=== PATIENT | female | born 1975 | race African-American/Black ===

== ENCOUNTER 2019-09-25 12:40 | Outpatient (CLI) | payer BC, SELFPAY ==
--- NOTE | ~2019-09-25 | MM_ITS ---
EXAMINATION: MM screening carrie BI w yesi HISTORY: Baseline screening mammogram TECHNIQUE: Craniocaudal and mediolateral oblique 3-D tomosynthesis images were obtained and synthetic 2-D images were generated. CAD analysis was submitted and interpreted. COMPARISON: None, baseline BREAST PARENCHYMAL COMPOSITION: The breasts are heterogeneously dense, which may obscure small masses . FINDINGS: RIGHT BREAST: Focal asymmetry is present in the posterior third of the upper breast at the 12:00 loca tion 8 cm from the nipple. LEFT BREAST: There is an asymmetry in the middle/posterior third of the outer breast 8.8 cm from the nipple on the craniocaudal view. IMPRESSION: 1. Bilateral breast findings as described above. 2. Additional mammographic views and possible breast ultrasound are recommended to evaluate for malig kedar and establish a baseline given that this is the first mammographic examination. BI-RADS Category 0: Incomplete: Needs additional imaging evaluation. Reviewed, dictated and finalized at location A. IMPRESSION: 1. Bilateral breast findings as described above. 2. Additional mammographic views and possible breast ultrasound are recommended to evaluate for malignancy and establish a baseline given that this is the fir st mammographic examination. BI-RADS Category 0: Incomplete: Needs additional imaging evaluation.
--- NOTE | ~2019-09-25 | US_ITS ---
EXAMINATION: US thyroid DATE: 09/25/2019 13:41 INDICATION: Abnormal results of thyroid function studies. Enlarged thyroid. TECHNIQUE: Multiple ultrasound images of the thyroid were obtained. COMPARISON: None. FINDINGS: The right thyroid lobe measures 6.1 x 1.7 x 1.7 cm. The left thyroid lobe measures 4.3 x 1.8 x 1.7 c m. In the right thyroid lobe, there is a 5 mm solid, hypoechoic, [id number]-[id number] nodule with ill-def ined margin without echogenic foci (TI-RADS TR4). In the right thyroid lobe, there is a 7 mm cystic n odule (TR1). IMPRESSION: 1. Small thyroid nodules, likely not clinically significant. No follow-up is needed. Reviewed, dictated and finalized at location A. IMPRESSION: 1. Small thyroid nodules, likely not clinically significant. No follow-up is ne eded.
--- NOTE | ~2019-09-25 | US_ITS ---
EXAMINATION: US pelvic complete w TV DATE: 09/25/2019 13:41 INDICATION: Right adnexal pain and fullness TECHNIQUE: Multiple transabdominal and endovaginal sonographic images of the pelvis were obtained. COMPARISON: 02/20/2014 FINDINGS: The uterus measures 11.4 x 6.1 x 4.9 cm. The endometrial complex measures 7 mm. The right o vary measures 4.3 x 2.3 x 2.1 cm. The left ovary measures 3.4 x 2.3 x 2.1 cm. There is normal vascula r flow in the ovaries. There is trace free fluid in the pelvis. IMPRESSION: 1. No sonographic correlate for the patient's symptoms. Reviewed, dictated and finalized at location A.
[2019-09-25 17:27] LABS: Hepatitis B Surface Antigen Negative (Negative)
[2019-09-25 17:42] LABS: HIV 1/2 Ab P24 Ag Result Negative (Negative); Hepatitis C Virus Antibody Negative (Negative)
[2019-09-26 08:49] LABS: Rapid Plasma Reagin Non-Reactive (NonReactive)
[2019-09-29 14:56] LABS: HSV 1 IgM Screen Negative (Negative); HSV 2 IgM Screen Negative (Negative)
== END 2019-09-25 12:41 | disposition home or self-care (01) ==
PROVIDERS: PCP Family Medicine; Visit Provider Obstetrics & Gynecology
DX: Z12.31 Encounter for screening mammogram for malignant neoplasm of breast (principal); R10.2 Pelvic and perineal pain; E04.1 Nontoxic single thyroid nodule
CPT/HCPCS: 36415; 76536; 76830; 76856; 77063; 77067; 86592; 86695; 86696; 86703; 86803; 87340; G0432

== ENCOUNTER 2019-10-19 12:55 | Outpatient (CLI) | payer BC, SELFPAY ==
--- NOTE | ~2019-10-19 | MMUS_ITS ---
EXAMINATION: MM diagnostic mammo BI, US breast RT limited HISTORY: Left breast asymmetry and focal asymmetry of the right breast on baseline screening mammogra m TECHNIQUE: Additional 3-D tomosynthesis images of the breasts were performed and synthetic 2-D images were generated. CAD analysis was submitted and interpreted. High resolution limited right breast ult rasound was performed. COMPARISON: 09/25/2019 FINDINGS: MAMMOGRAPHIC FINDINGS: Left breast: The left breast asymmetry described on the craniocaudal view does not persist with spot compression. Right breast: There is persistent focal asymmetry in the posterior third of the upper breast at the 1 2:00 location 8 cm from the nipple. ULTRASOUND: There is a 1.3 x 0.5 cm cyst at the 10:00 location 7 cm from the nipple. Incidental note is made of a 5 mm lymph node the 9:00 location 4 cm from the nipple. IMPRESSION: 1. No mammographic or sonographic evidence of malignancy. 2. Recommend routine screening mammography in one year. BI-RADS Category 2: Benign finding(s). Reviewed, dictated and finalized at location A. IMPRESSION: 1. No mammographic or sonographic evidence of malignancy. 2. Recommend routine screening mammography in one year. BI-RADS Category 2: Benign finding(s).
== END 2019-10-19 12:56 | disposition home or self-care (01) ==
LOC: ANHIMG 12:56
PROVIDERS: PCP Family Medicine; Visit Provider Obstetrics & Gynecology
DX: R92.8 Other abnormal and inconclusive findings on diagnostic imaging of breast (principal)
CPT/HCPCS: 76642; 77066

== ENCOUNTER 2020-01-05 23:02 | Emergency (ER) | payer BC, SELFPAY ==
[2020-01-05 23:06] VITALS: BP 160/95; PULSE 83; RESP 18; TEMP 37.1; O2SAT 98
[2020-01-05 23:47] LABS: Add Urine Microscopic? NO; Appearance Urine Clear (Clear); Bilirubin Urine Negative (Negative); Blood Urine Negative (Negative); Color Urine Colorless (Yellow); Glucose Urine UA Negative (Negative); Ketones Urine Negative (Negative); Leukocyte Esterase Ur Negative LEU/UL (Negative); Nitrate Urine Negative (Negative); Protein Urine Negative (Negative); Urobilinogen Urine Negative mg/dL (<2.0)
[2020-01-06 00:04] LABS: Specific Grav Ur 1.004 (1.001-1.035)
--- NOTE | 2020-01-06 00:13 | ED.GENADULT ---
HPI - General Adult General Chief complaint: Skin/Abscess/Foreign Body Stated complaint: bug bite Time Seen by Provider: 01/05/20 23:20 Source: RN notes reviewed History of Present Illness HPI narrative: Patient presents emergency department from home for insect bite. Patient states she was bit on the right inner upper arm yesterday. States she is unsure what bit or stung her but notes she has had increasing pain and swelling and redness to the region. Denies any other injuries. She denies any fevers or chills numbness or tingling in the extremity or any other symptoms states she is taken no previous medication for the symptoms. Patient states she also has some concern about a possible UTI. She notes some mild frequent urination. She denies any pain with urination abdominal pain or flank pain Related Data Allergies Allergy/AdvReac Type Severity Reaction Status Date / Time No Known Allergies Allergy Verified 01/05/20 23:09 Review of Systems Review of Systems: Narrative: Gen.: Denies fevers or chills ENT: Denies congestion Respiratory: Denies shortness of breath or cough CV: Denies chest pain GI: Denies abdominal pain nausea, emesis denies burning, urgency, or hematuria, reports frequency Musculoskeletal: Denies back pain or muscle pain Neuro: Denies numbness, tingling, weakness or focal weakness Skin: See HPI Except as documented, all other systems reviewed and negative PMFSH Past Medical History Medical History Enlarged thyroid Essential hypertension JENY (generalized anxiety disorder) High risk sexual behavior Suicidal ideation Vaginal delivery x 2 Social History Social History Smoking status: Never smoker Second hand tobacco smoke exposure: No Alcohol intake: never Substance use: never Substance use type: does not use Gender identity (if verbalized by the patient): Female Sexual Orientation (if Verbalized by the Patient): Straight or Heterosexual Exam Narrative: Exam Narrative: APPEARANCE: No acute distress, nontoxic, resting in bed EYES: EOMI HEENT: Normocephalic, atraumatic, OMM RESPIRATORY: No respiratory distress Clear to auscultation bilaterally with no rhonchi wheezing or rales. CARDIOVASCULAR: Regular rate and rhythm without murmurs rubs or gallops. ABDOMINAL: Soft, nontender, nondistended, no rebound or guarding MUSCULOSKELETAl: Moves all extremities. No clubbing, cyanosis or edema. No tenderness of the right shoulder elbow or wrist with full range of motion both, radial pulse 2+, the right inner upper arm has a raised area consistent with a insect bite or sting with surrounding erythema mild tenderness NEURO: Awake and alert. Following commands, speech normal, no focal deficits SKIN:: Warm, dry. See extremity PSYCHIATRIC: Normal affect/mood, Course Course Emergency Course: Discussed with patient results of workup and diagnosis. Discussed need for follow-up with primary care, proper use of medication, and reasons to return to the emergency department. Patient understands and agrees to current treatment plan Vital Signs Vital signs: Vital Signs Temperature 98.8 F 01/05/20 23:06 Pulse Rate 83 01/05/20 23:06 Respiratory Rate 18 01/05/20 23:06 Blood Pressure 160/95 H 01/05/20 23:06 Pulse Oximetry 98 01/05/20 23:06 Temperature 98.8 F 01/05/20 23:06 Pulse Rate 83 01/05/20 23:06 Respiratory Rate 18 01/05/20 23:06 Blood Pressure 160/95 H 01/05/20 23:06 Pulse Oximetry 98 01/05/20 23:06 Medical Decision Making Vital Signs Vital Signs: Vital Signs Temperature 98.8 F 01/05/20 23:06 Pulse Rate 83 01/05/20 23:06 Respiratory Rate 18 01/05/20 23:06 Blood Pressure 160/95 H 01/05/20 23:06 Pulse Oximetry 98 01/05/20 23:06 Temperature 98.8 F 01/05/20 23:06 Pulse Rate 83 01/05/20 23:06 Respiratory Rate 18 01/05/20
[2020-01-06] MEDS: CEPHALEXIN 500 MG CAPSULE PO (00:24)
[2020-01-06] MEDS: predniSONE 20 MG TABLET 60 MG PO (00:24)
[2020-01-06] MEDS: LORATADINE 10 MG TABLET PO (00:24)
[2020-01-06 00:29] VITALS: BP 135/90; PULSE 75; RESP 17; O2SAT 100
== END 2020-01-06 00:30 | disposition home or self-care (01) ==
PROVIDERS: Emergency Provider Emergency Medicine; PCP Family Medicine
DX: S40.861A Insect bite (nonvenomous) of right upper arm, initial encounter (principal); I10 Essential (primary) hypertension; E04.9 Nontoxic goiter, unspecified; W57.XXXA Bitten or stung by nonvenomous insect and other nonvenomous arthropods, initial encounter
CPT/HCPCS: 81003; 81025; 99283; A9270; J7512

== ENCOUNTER 2020-01-10 16:41 | Outpatient (CLI) | payer BC, SELFPAY ==
[2020-01-15 05:48] LABS: FSH 3.7 mIU/mL (***); LH 2.4 mIU/mL (***); Progesterone 13.5 ng/mL (***)
[2020-01-17 19:43] LABS: Estradiol, Ultrasensitive 92 pg/mL
== END 2020-01-10 16:42 | disposition home or self-care (01) ==
LOC: ANHLAB 16:43
PROVIDERS: PCP Family Medicine; Visit Provider Obstetrics & Gynecology
DX: R10.2 Pelvic and perineal pain (principal)
CPT/HCPCS: 36415; 82670; 83001; 83002; 84144; 84439; 84443

== ENCOUNTER 2020-09-11 10:39 | Outpatient (CLI) | payer BC, SELFPAY ==
[2020-09-11 11:03] LABS: Hematocrit 36.8 % (37.0-47.0); Hemoglobin 12.2 g/dL (12.0-15.0); Mean Corpuscular HGB Conc 33.2 g/dl (32-36); Mean Corpuscular Hemoglobin 29.8 pg (26-34); Mean Platelet Volume 10.2 fl (7.4-10.4); Platelet Count Result 359 k/mm3 (150-375); Red Blood Count 4.09 M/mm3 (4.2-5.4); Red Cell Distribution Width 13.8 % (11.5-14.5); White Blood Count 5.3 K/mm3 (4.5-10.0)
[2020-09-11 11:13] LABS: Alanine Aminotransferase 20 U/L (4-35); Alkaline Phosphatase 63 U/L (38-126); Anion Gap 8 mmol/L (8-16); Aspartate Amino Transferase 28 U/L (14-36); Bilirubin,Total 0.3 mg/dL (0.2-1.3); Blood Urea Nitrogen 8 mg/dL (7-17); Calcium 9.5 mg/dL (8.4-10.2); Carbon Dioxide 26 mmol/L (22-30); Chloride 105 mmol/L (98-107); Cholesterol 198 mg/dL (0-200); Estimated Glomerular Filt Rate > 60; Glucose 106 mg/dL (65-105); HDL Direct 45 mg/dL; Potassium 4.4 mmol/L (3.4-5.0); Sodium 139 mmol/L (137-145); Triglycerides 124 mg/dL (<150)
[2020-09-11 11:24] LABS: LDL Cholesterol Direct 103 mg/dL
[2020-09-11 11:39] LABS: Add Urine Microscopic? YES; Appearance Urine Clear (Clear); Bilirubin Urine Negative (Negative); Blood Urine 3+ (Negative); Color Urine Colorless (Yellow); Glucose Urine UA Negative (Negative); Ketones Urine Negative (Negative); Leukocyte Esterase Ur Negative LEU/UL (NEGATIVE); Nitrate Urine Negative (Negative); Protein Urine Negative (Negative); Specific Grav Ur 1.005 (1.001-1.035); Urobilinogen Urine Negative mg/dL (<2.0)
[2020-09-11 11:52] LABS: RBC Urine 0-2 /hpf (0-2)
[2020-09-11 11:53] LABS: Squamous Epithelial Cell Urine Occasional /hpf (Few)
== END 2020-09-11 10:40 | disposition home or self-care (01) ==
LOC: ANHLAB 10:41
PROVIDERS: PCP Family Medicine; Visit Provider Family Medicine
DX: I10 Essential (primary) hypertension (principal); Z00.00 Encounter for general adult medical examination without abnormal findings
CPT/HCPCS: 36415; 80053; 80061; 81001; 84443; 85027

== ENCOUNTER 2021-04-16 17:55 | Outpatient (CLI) | payer BC, SELFPAY ==
--- NOTE | ~2021-04-16 | MM_ITS ---
EXAMINATION: MM screening carrie BI w yesi HISTORY: Screening mammogram TECHNIQUE: Craniocaudal and mediolateral oblique 3-D tomosynthesis images were obtained and synthetic 2-D images were generated. CAD analysis was submitted and interpreted. COMPARISON: 10/19/2019, 09/25/2019 BREAST PARENCHYMAL COMPOSITION: The breasts are heterogeneously dense, which may obscure small masses . FINDINGS: RIGHT BREAST: There is no evidence of suspicious mass, calcification, or architectural distortion to suggest malignancy. There has been no significant interval change. LEFT BREAST: There is a mass in the posterior third of the lower-outer breast 7 cm from the nipple. IMPRESSION: 1. Left breast mass. 2. Additional mammographic views and possible breast ultrasound are recommended. BI-RADS Category 0: Incomplete: Needs additional imaging evaluation. Reviewed, dictated and finalized at location A. RNAL SPECIALIST IMPRESSION: 1. Left breast mass. 2. Additional mammographic views and possible breast ultrasound are recommended . BI-RADS Category 0: Incomplete: Needs additional imaging evaluation.
== END 2021-04-16 17:56 | disposition home or self-care (01) ==
LOC: ANHIMG 17:57
PROVIDERS: PCP Family Medicine; Visit Provider Obstetrics & Gynecology
DX: Z12.31 Encounter for screening mammogram for malignant neoplasm of breast (principal); R92.8 Other abnormal and inconclusive findings on diagnostic imaging of breast
CPT/HCPCS: 77063; 77067

== ENCOUNTER 2021-04-21 13:24 | Outpatient (CLI) | payer BC, SELFPAY ==
--- NOTE | ~2021-04-21 | MMUS_ITS ---
EXAMINATION: MM diagnostic carrie LT w yesi, US breast LT limited HISTORY: Follow-up left breast mass TECHNIQUE: Additional 3-D tomosynthesis images of the left breast were performed and synthetic 2-D im ages were generated. CAD analysis was submitted and interpreted. High resolution Limited left breast ultrasound was performed. COMPARISON: 04/16/2021 BREAST PARENCHYMAL COMPOSITION: Breast composed of scattered areas of fibroglandular density. FINDINGS: MAMMOGRAPHIC FINDINGS: There is a mass in the lower outer quadrant of the left breast, middle third. There are no suspicious calcifications or architectural distortion. ULTRASOUND: Limited left breast ultrasound: At 4:00, 4 cm from the nipple there is a cyst measuring 1.5 x 1.2 x 0 .7 cm corresponding to the mass seen on mammography. No suspicious masses to suggest malignancy. IMPRESSION: 1. No evidence for malignancy in the left breast. 2. Routine yearly screening mammogram and regular clinical breast examination are recommended. BI-RADS Category 2: Benign finding(s). Reviewed, dictated and finalized at location A. NESS BANKING REPRESENTATIVE IMPRESSION: 1. No evidence for malignancy in the left breast. 2. Routine yearly screening mammogram and regular clinical breast examination a re recommended. BI-RADS Category 2: Benign finding(s).
== END 2021-04-21 13:25 | disposition home or self-care (01) ==
LOC: ANHIMG 13:25
PROVIDERS: PCP Family Medicine; Visit Provider Obstetrics & Gynecology
DX: N60.02 Solitary cyst of left breast (principal)
CPT/HCPCS: 76642; 77061; 77065; G0279

== ENCOUNTER 2021-06-14 20:40 | Emergency (ER) | payer BC, SELFPAY ==
[2021-06-14] VITALS (11 sets, daily range): BP systolic 104–145; BP diastolic 60–111; PULSE 70–104; RESP 12–18; TEMP 36.3; O2SAT 98–100
--- NOTE | 2021-06-14 20:39 | ECG_ITS ---
Measurements Intervals [place] Rate: 100 P: 59 [place]: 185 QRS: 42 QRSD: 83 T: 262 QT: 338 QTc: 436 Interpretive Statements SINUS TACHYCARDIA POSSIBLE LEFT ATRIAL ENLARGEMENT [-0.1mV P WAVE IN V1/V2] LEFT VENTRICULAR HYPERTROPHY AND ST-T CHANGE [VOLTAGE CRITERIA PLUS ST/T ABNORMALITY] ABNORMAL ECG NO PREVIOUS ECG AVAILABLE FOR COMPARISON Electronically Signed On 06-15-2021 14:00:01 PALLIATIVE SENIOR NP by Stevenson Fontaine M.D.
--- NOTE | 2021-06-14 20:46 | ED.GENADULT ---
HPI - General Adult General Chief complaint: Overdose Stated complaint: marijuana overdose Time Seen by Provider: 06/14/21 20:46 Source: patient Mode of arrival: EMS Limitations: no limitations History of Present Illness HPI narrative: Patient is a 46-year-old female, with PMHx of anxiety, depression, and HTN, who presents to the ED via EMS with complaints of marijuana intoxication. Patient reports she was making cannabis butter tonight for the first time. She then ate a cookie that she dipped into the residual oil of the butter. Patient then began to feel panicked and noticed her heart start racing around 1 hour later. She states she felt like she was 'going to ', at which point EMS was called. Currently in the ED, patient states her anxiety comes and goes in waves. She does report feeling her heart racing. She denies any chest pain, headache, weakness, vision changes, nausea, vomiting, shortness of breath. She denies taking any other drugs or alcohol use tonight. She was not trying to harm herself in any way. Related Data Home Medications Medication Instructions Recorded Confirmed amlodipine 06/14/21 Allergies Allergy/AdvReac Type Severity Reaction Status Date / Time No Known Allergies Allergy Verified 06/14/21 20:46 Review of Systems Review of Systems: CONSTITUTIONAL: Denies fever, chills, or sweats. EYES: Denies visual changes. CARDIOVASCULAR: Reports racing heart palpitations. Denies chest pain or edema. RESPIRATORY: Denies cough or dyspnea. GASTROINTESTINAL: Denies abdominal pain, nausea, vomiting, or diarrhea. MUSCULOSKELETAL: Denies back pain, joint pain, or myalgia. NEUROLOGIC: Denies headache, numbness, or weakness. PSYCHIATRIC: Reports anxiety. Denies depression, SI. All systems reviewed & are unremarkable except as noted in HPI and below PMFSH Past Medical History Medical History Anxiety Depression Hypertension Surgical History Surgical History No pertinent past surgical history Social History Social History Smoking status: Never smoker Substance use type: marijuana Exam Narrative: GENERAL: Anxious appearing, well-nourished, non-toxic, in no acute distress. HEAD: Normocephalic, atraumatic. EYES: PERRL/EOMI, conjunctivae erythematous bilaterally. No nystagmus. NOSE: Normal, no drainage THROAT: Pharynx clear, no exudate. MMs dry. NECK: Supple. No adenopathy, no masses. RESPIRATORY: Airway patent, respirations nonlabored. Clear to auscultation bilaterally, no rales, rhonchi, wheezing. CARDIOVASCULAR: Tachycardia, regular rhythm without murmurs, rubs, or gallops. Peripheral pulses 2+ and equal bilaterally. ABDOMINAL: Soft, nontender, nondistended, no hepatosplenomegaly. Normoactive BS. MUSCULOSKELETAL: Moves all extremities. Strength/ROM intact without gross deformities or TTP. No edema. No calf tenderness. SKIN: Warm, dry, normal color. No rashes. NEURO: A&O X3. Speech clear. Able to follow commands. Cranial nerves II-XII intact. Steady gait. No ataxic movements. PSYCHIATRIC: Anxious. Normal interaction. Course Reevaluation(s) Reevaluation #1: Patient feeling calmer and resting comfortably in ED bed. VS improved. Date: 06/14/21 Time: 22:42 Vital Signs Vital signs: Vital Signs Temperature 97.4 F L 06/14/21 20:36 Pulse Rate 104 H 06/14/21 20:36 Respiratory Rate 17 06/14/21 20:36 Blood Pressure 145/111 H 06/14/21 20:36 Pulse Oximetry 98 06/14/21 20:36 Temperature 97.4 F L 06/14/21 20:36 Pulse Rate 88 06/14/21 23:46 Respiratory Rate 14 06/14/21 23:46 Blood Pressure 104/63 06/14/21 23:46 Pulse Oximetry 99 06/14/21 23:46 Medical Decision Making MDM Narrative Medical decision making narrative: Patient presented to the ED via EMS after ingesting concentrated marijuana oil while making e
[2021-06-14] MEDS: SODIUM CHLORIDE 0.9% IV 1,000 ML 999 ML IV CONT (20:53)
[2021-06-14 23:06] LABS: Basophils Percent Auto 0.4 % (0.2-1.2); Eosinophils Percent Auto 0.1 % (0-4.4); Hematocrit 34.5 % (37.0-47.0); Hemoglobin 11.3 g/dL (12.0-15.0); Immature Granulocyte Absolute 0.02 K/mm3 (0.00-0.031); Immature Granulocyte Percent A 0.2 % (0-0.5); Lymphocytes Absolute Auto 1.03 K/mm3 (0.9-3.2); Lymphocytes Percent Auto 10.1 % (18.3-44.2); Mean Corpuscular HGB Conc 32.8 g/dl (32-36); Mean Corpuscular Hemoglobin 30.7 pg (26-34); Mean Corpuscular Volume 93.8 fl (80-100); Mean Platelet Volume 10.1 fl (7.4-10.4); Monocytes Absolute Auto 0.6 K/mm3 (0.1-0.6); Monocytes Percent Auto 6.3 % (2.6-8.5); Neutrophils Absolute Auto 8.4 K/mm3 (1.3-6.7); Neutrophils Percent Auto 82.9 % (45.5-73.1); Platelet Count Result 300 k/mm3 (150-375); Red Blood Count 3.68 M/mm3 (4.2-5.4); Red Cell Distribution Width 13.2 % (11.5-14.5); White Blood Count 10.2 K/mm3 (4.5-10.0)
[2021-06-14 23:16] LABS: Anion Gap 4 mmol/L (8-16); Blood Urea Nitrogen 12 mg/dL (7-17); Calcium 8.5 mg/dL (8.4-10.2); Carbon Dioxide 27 mmol/L (22-30); Chloride 105 mmol/L (98-107); Estimated CRCL calculation 83 ml/min; Estimated Glomerular Filt Rate > 60; Glucose 121 mg/dL (65-110); Magnesium 1.9 mg/dL (1.6-2.3); Potassium 4.6 mmol/L (3.4-5.0); Sodium 136 mmol/L (137-145)
== END 2021-06-14 23:40 | disposition home or self-care (01) ==
PROVIDERS: Physician Assistant; Emergency Provider Emergency Medicine
DX: T40.711A Poisoning by cannabis, accidental (unintentional), initial encounter (principal); F41.9 Anxiety disorder, unspecified; F32.A Depression, unspecified; I10 Essential (primary) hypertension; R00.0 Tachycardia, unspecified; R94.31 Abnormal electrocardiogram [ECG] [EKG]; I51.7 Cardiomegaly
CPT/HCPCS: 36415; 80048; 83735; 85025; 93005; 96360; 99283; J7030

== ENCOUNTER 2021-09-06 14:53 | Emergency (ER) | payer BC, SELFPAY ==
--- NOTE | ~2021-09-06 | CT_ITS ---
EXAMINATION: CT abdomen pelvis wo con DATE: 09/06/2021 16:41 INDICATION: Constipation and diarrhea. Abdominal cramping. TECHNIQUE: Computed tomography (CT) of the abdomen and pelvis was performed without intravenous contr ast. The dose-length product was 363.53 mGy-cm. Automated exposure control and iterative reconstructi on technique were employed. COMPARISON: None. FINDINGS: Heart size normal. No significant pleural or pericardial effusion. No significant vascular abnormality. No lymphadenopathy. The liver, spleen, pancreas, adrenal glands and kidneys are unremarkable. Gallbladder is contracted. Nonobstructive bowel gas pattern. No abnormal pelvic masses or fluid collections. There are pelvic ph leboliths. No acute osseous abnormality. IMPRESSION: 1. No acute abdominal abnormality. Reviewed, dictated and finalized at location A.
[2021-09-06 14:55] VITALS: BP 160/100; PULSE 100; RESP 17; TEMP 36.4; O2SAT 99
--- NOTE | 2021-09-06 15:41 | ED.GENADULT ---
HPI - General Adult General Chief complaint: Nausea/Vomiting/Diarrhea Stated complaint: diarrhea Time Seen by Provider: 09/06/21 15:05 History of Present Illness HPI narrative: 46-year-old female presenting to the emergency department for evaluation of 2 weeks of intermittent abdominal cramping, diarrhea, constipation and mucousy stool along with hemorrhoids. Patient states that she had a liquid diet for the last few days but then did have eggs today. Patient states in response to having the eggs she had increased flatulence. Patient also noticed when she wiped that she did have some blood on the toilet paper. Patient does report a significant history of anxiety. Patient has also had previous history with hemorrhoids. Patient does have follow-up with GI scheduled on September 17. Related Data Allergies Allergy/AdvReac Type Severity Reaction Status Date / Time No Known Allergies Allergy Verified 07/17/21 15:02 Review of Systems Review of Systems: CONSTITUTIONAL: Denies fever, chills, or sweats. EYES: Denies visual changes, redness, or discharge. ENT: Denies rhinorrhea, congestion, sore throat, or otalgia. CARDIOVASCULAR: Denies chest pain, palpitations, or edema. RESPIRATORY: Denies cough or dyspnea. GASTROINTESTINAL: See HPI GENITOURINARY: Denies dysuria or hematuria. SKIN: Denies rash or itching. MUSCULOSKELETAL: Denies back pain, joint pain, or myalgia. NEUROLOGIC: Denies headache, numbness, or weakness. [facility] Past Medical History Medical History (Updated 09/06/21 @ 20:01 by Abdon Montoya MD) Agoraphobia Anxiety Depression Enlarged thyroid Essential hypertension JENY (generalized anxiety disorder) Hypertension Panic attack Suicidal ideation Vaginal delivery x 2 Surgical History Surgical History (Updated 07/17/21 @ 15:02 by Arti Fritz) No pertinent past surgical history Family History Family History (System 07/17/21 @ 15:02 by Arti Fritz) Mother Hypertension Family history of kidney disease Family history of diabetes mellitus in first degree relative Diabetes mellitus Family history of hypercholesterolemia Cerebrovascular accident Social History Social History (System 07/17/21 @ 15:02 by Arti Fritz) Smoking status: Never smoker Second hand tobacco smoke exposure: No Alcohol intake: never Substance use: never Substance use type: does not use and marijuana Gender identity (if verbalized by the patient): Female Sexual Orientation (if Verbalized by the Patient): Straight or Heterosexual Exam Narrative: APPEARANCE: Well appearing, no pain, no distress, well-nourished. HEAD: normocephalic, atraumatic. EYES: PERRLA/EOMI, conjunctivae clear. NOSE: Normal no drainage THROAT: Pharynx clear, no exudate. NECK: Supple. No adenopathy, no masses. RESPIRATORY: Airway patent, respirations nonlabored. Clear to auscultation bilaterally, no rales, rhonchi, wheezing. CARDIOVASCULAR: Regular rate and rhythm without murmurs rubs or gallops. ABDOMINAL: Soft, nontender, nondistended, normal bowel sounds. Patient did have external hemorrhoids that were nonthrombosed. No internal hemorrhoids palpated. No blood on the HILARY. MUSCULOSKELETAL: Moves all extremities. Strength/ROM intact, No edema, No calf tenderness. NEURO: Alert. Cranial nerves II through XII intact. Grossly intact SKIN: Warm, dry. Normal Color PSYCHIATRIC: Anxious affect Course Course Emergency Course: Patient was updated on the results of her work-up and CT scan. Patient had no leukocytosis. Patient was afebrile. CMP was within normal limits. CT scan showed no evidence of obstruction. C. difficile was negative. Patient was encouraged to advance to a brat diet from her clear liquid diet. Patient was also encouraged to continue have close follow-up with her paper cup machine tender. All questions and concerns were addressed. Vital Signs Vital signs: Vital Signs Temperature 97.5 F L 09/06/21 14:55 Pulse Rate 100 05
[2021-09-06 16:10] LABS: Basophils Percent Auto 0.6 % (0.2-1.2); Eosinophils Absolute Auto 0.1 K/mm3 (0-0.3); Hematocrit 37.5 % (37.0-47.0); Hemoglobin 12.3 g/dL (12.0-15.0); Immature Granulocyte Absolute 0.01 K/mm3 (0.00-0.031); Immature Granulocyte Percent A 0.2 % (0-0.5); Lymphocytes Absolute Auto 1.55 K/mm3 (0.9-3.2); Lymphocytes Percent Auto 31.3 % (18.3-44.2); Mean Corpuscular HGB Conc 32.8 g/dl (32-36); Mean Corpuscular Hemoglobin 29.9 pg (26-34); Mean Corpuscular Volume 91.2 fl (80-100); Mean Platelet Volume 10.6 fl (7.4-10.4); Monocytes Absolute Auto 0.5 K/mm3 (0.1-0.6); Monocytes Percent Auto 9.5 % (2.6-8.5); Neutrophils Absolute Auto 2.8 K/mm3 (1.3-6.7); Neutrophils Percent Auto 57.4 % (45.5-73.1); Platelet Count Result 280 k/mm3 (150-375); Red Blood Count 4.11 M/mm3 (4.2-5.4); Red Cell Distribution Width 13.4 % (11.5-14.5)
[2021-09-06 16:19] LABS: Alanine Aminotransferase 12 U/L (6-35); Albumin Level 4.2 g/dL (3.5-5.1); Alkaline Phosphatase 58 U/L (38-126); Anion Gap 10 mmol/L (8-16); Aspartate Amino Transferase 25 U/L (14-36); Bilirubin,Total 0.5 mg/dL (0.2-1.3); Blood Urea Nitrogen 8 mg/dL (7-17); Carbon Dioxide 25 mmol/L (22-30); Chloride 104 mmol/L (98-107); Estimated CRCL calculation 73 ml/min; Estimated Glomerular Filt Rate > 60; Glucose 84 mg/dL (65-110); Lactic Acid Reflex 0.7 mmol/L (0.7-2.0); Lipase 93 U/L (23-300); Potassium 3.6 mmol/L (3.4-5.0); Sodium 139 mmol/L (137-145)
[2021-09-06 16:28] LABS: Appearance Urine Clear (Clear); Bilirubin Urine Negative (Negative); Glucose Urine UA Negative (Negative); Ketones Urine 1+ mg/dL (Negative); Leukocyte Esterase Ur Negative LEU/UL (Negative); Nitrate Urine Negative (Negative); Protein Urine Negative (Negative); Urobilinogen Urine 0.2 mg/dL (<2.0)
[2021-09-06 16:31] LABS: Add Urine Microscopic? YES; Blood Urine Trace-Intact (Negative); Color Urine Light Yellow (Yellow)
[2021-09-06 16:59] LABS: Bacteria Urine Trace /hpf; RBC Urine 0-2 /hpf (0-2); Squamous Epithelial Cell Urine Rare /hpf (Few); WBC Urine 0-3 /hpf
--- NOTE | 2021-09-06 17:21 | PC.NURSE ---
Stool Specimen provided.
[2021-09-06 17:23] VITALS: BP 162/102; PULSE 86; RESP 16; TEMP 36.8; O2SAT 100
[2021-09-06 18:51] VITALS: PULSE 78; RESP 18; O2SAT 98
--- NOTE | 2021-09-06 19:12 | PC.NURSE ---
Assumed care of pt at this time. Pt alert and upright on stretcher, updated on POC
[2021-09-06 19:26] LABS: Toxigenic C. Diff NEGATIVE (NEGATIVE)
--- NOTE | 2021-09-06 19:40 | PC.NURSE ---
This RN present for rectal exam performed by Dr. Prem Montoya. Pt tolerated well.
== END 2021-09-06 20:08 | disposition home or self-care (01) ==
PROVIDERS: Emergency Provider Emergency Medicine; PCP Family Medicine
DX: R19.7 Diarrhea, unspecified (principal); K64.9 Unspecified hemorrhoids; I10 Essential (primary) hypertension; F41.9 Anxiety disorder, unspecified; F32.9 Major depressive disorder, single episode, unspecified
CPT/HCPCS: 36415; 74176; 80053; 81001; 83605; 83690; 85025; 87045; 87177; 87209; 87269; 87272; 87427; 87493; 89055; 99284

== ENCOUNTER 2021-09-28 03:04 | Day surgery (SDC) | payer BC, SELFPAY ==
[2021-09-23 09:33] VITALS: BMI 25.2
--- NOTE | 2021-09-28 08:38 | P.PNAN_ITS ---
Anes - Initial Pre Proc Eval Procedure: Operation Date: 09/28/21 09:00 Proposed Procedures p Colonoscopy - Devin Santamaria MD s [facility] Hemorrhoid Treatment - Devin Santamaria MD Date/Time: 09/28/21 08:38 Surgeon: Devin Santamaria MD Pre Op Diagnosis: rectal bleed; hemorrhoids Patient Data Age: 46 Gender: F Height: 1.68 m Weight: 72 kg Allergies Allergy/AdvReac Type Severity Reaction Status Date / Time Fish Containing Products Allergy Hives Verified 09/28/21 08:22 Home Medications Medication Instructions Recorded Confirmed Type amlodipine 5 mg tablet See Rx Instructions .Route 09/03/21 09/23/21 Rx .COMPLEX #90 tabs lorazepam 0.5 mg tablet (Ativan) 0.5 mg PO TID PRN anxiety #30 tabs 09/04/21 09/28/21 Rx sodium sul 1.479 gram-potas ch See Rx Instructions PO PER PKG DIR 09/22/21 09/23/21 Rx 0.188 gram-magnes sul 0.225 gram #24 tabs tablet (Sutab) Patient hx anesthesia problems: none Family hx anesthesia problems: none Results Review: All pre-operative results and documents have been reviewed as part of the pre- operative evaluation. [facility] Past Medical History Medical History (Updated 09/17/21 @ 13:23 by Devin Santamaria MD) Agoraphobia Anxiety Bleeding hemorrhoid BRBPR (bright red blood per rectum) Depression Enlarged thyroid Essential hypertension JENY (generalized anxiety disorder) Hypertension Panic attack Rectal pressure Suicidal ideation Vaginal delivery x 2 Weight loss Surgical History Surgical History No pertinent past surgical history Family History Family History Mother Hypertension Family history of kidney disease Family history of diabetes mellitus in first degree relative Diabetes mellitus Family history of hypercholesterolemia Cerebrovascular accident Social History Social History Smoking status: Former smoker Second hand tobacco smoke exposure: No Alcohol intake: current Alcohol use details: rarely Substance use: never Substance use type: does not use Living arrangements: with roommate(s) Gender identity (if verbalized by the patient): Female Sexual Orientation (if Verbalized by the Patient): Straight or Heterosexual Spiritual care concerns: No Anes - Eval Final PreProcedure Day of Procedure 09/28/21 08:38 Patient weight: overweight Heart: regular rate and rhythm Lungs: clear to auscultation Airway: Mallampati scale class II Neurological: alert and oriented Last oral intake: >/= 8 hours ASA classification: II Emergent: no Anesthetic plan: proceed Anesthesia type and monitoring: general GIVS and standard monitoring Results Review: All pre-operative results and documents have been reviewed as part of the pre- operative evaluation. Informed Consent: The patient's anesthetic plan and its attendant risks and benefits were discussed with the patient/family/POA. Questions were solicited and answers provided to the satisfaction of the patient/family/POA.
[2021-09-28] MEDS: LACTATED RINGERS 1,000 ML 150 ML IV CONT (08:43)
--- NOTE | 2021-09-28 08:47 | WPDHPUPDATE1 ---
History and Physical Update Update Date/Time: 09/28/21 08:47 History and Physical has been reviewed, including an updated exam of the patient. There are NO changes in the patient's condition. Risks, benefits, and alternatives have been discussed and questions answered. Patient agrees to proceed with procedure.
--- NOTE | 2021-09-28 09:08 | SUR.OPER ---
Per Dr. Edgar no need for IRC treatment.
[2021-09-28 09:12] VITALS: BP 102/73; PULSE 87; RESP 18; O2SAT 100
[2021-09-28 09:22] VITALS: BP 120/83; PULSE 72; RESP 18; O2SAT 99
[2021-09-28 09:32] VITALS: BP 134/97; PULSE 68; RESP 18; O2SAT 100
== END 2021-09-28 09:55 | disposition home or self-care (01) ==
PROVIDERS: PCP Family Medicine; Visit Provider Internal Medicine Gastroenterology
PROC: 0DJD8ZZ Inspection of Lower Intestinal Tract, Via Natural or Artificial Opening Endoscopic (ICD-10-PCS; CPT 45378; principal; 2021-09-28 09:00)
PROC: (CPT 46930; 2021-09-28 09:00)
DX: Z12.11 Encounter for screening for malignant neoplasm of colon (principal); K92.1 Melena; K62.89 Other specified diseases of anus and rectum; F41.9 Anxiety disorder, unspecified; F40.00 Agoraphobia, unspecified; F32.A Depression, unspecified; E04.9 Nontoxic goiter, unspecified; F41.1 Generalized anxiety disorder; I10 Essential (primary) hypertension; F41.0 Panic disorder [episodic paroxysmal anxiety]; Z87.891 Personal history of nicotine dependence; K64.9 Unspecified hemorrhoids
CPT/HCPCS: 45378; J2704; J7120

== ENCOUNTER 2022-03-26 16:54 | Outpatient (CLI) | payer BC, SELFPAY ==
[2022-03-26 17:26] LABS: Add Urine Microscopic? NO; Appearance Urine Clear (Clear); Bilirubin Urine Negative (Negative); Blood Urine Negative (Negative); Color Urine Light Yellow (Yellow); Glucose Urine UA Negative (Negative); Ketones Urine Negative (Negative); Leukocyte Esterase Ur Negative LEU/UL (Negative); Nitrate Urine Negative (Negative); Protein Urine Negative (Negative); Specific Grav Ur 1.015 (1.001-1.035); Urobilinogen Urine 0.2 mg/dL (<2.0); pH Urine 7.5 (5.0-9.0)
== END 2022-03-26 16:55 | disposition home or self-care (01) ==
LOC: ANHLAB 16:55
PROVIDERS: PCP Family Medicine; Visit Provider Physician Assistant
DX: N39.0 Urinary tract infection, site not specified (principal); R10.2 Pelvic and perineal pain
CPT/HCPCS: 81003

== ENCOUNTER 2022-06-17 15:43 | Outpatient (CLI) | payer BC, SELFPAY ==
--- NOTE | ~2022-06-17 | MM_ITS ---
EXAMINATION: MM screening [facility] BI w yesi HISTORY: Screening mammogram TECHNIQUE: Craniocaudal and mediolateral oblique 3-D tomosynthesis images were obtained and synthetic 2-D images were generated. CAD analysis was submitted and interpreted. COMPARISON: 04/21/2021, 04/16/2021, 10/19/2019, 09/25/2019 BREAST PARENCHYMAL COMPOSITION: The breasts are heterogeneously dense, which may obscure small masses . FINDINGS: No suspicious mass, calcification, or architectural distortion are identified in either juju ast to suggest malignancy. There has been no suspicious interval change. IMPRESSION: 1. No mammographic evidence of malignancy. 2. Recommend routine screening mammography in one year. BI-RADS Category 1: Negative Reviewed, dictated and finalized at location A. D NUTRITION ASSISTANT
== END 2022-06-17 15:44 | disposition home or self-care (01) ==
PROVIDERS: PCP Family Medicine; Visit Provider Obstetrics & Gynecology
DX: Z12.31 Encounter for screening mammogram for malignant neoplasm of breast (principal)
CPT/HCPCS: 77063; 77067

== ENCOUNTER 2022-12-21 19:50 | Emergency (ER) | payer BC, SELFPAY ==
--- NOTE | ~2022-12-21 | XR_ITS ---
EXAMINATION: XR chest 2V Exam Date/Time: 12/21/2022 20:10 CDT HISTORY: Left sided chest pain since last night Comparison: 03/10/2017. RESULT: Lines, tubes, and devices: None. Lungs and pleura: Clear. Cardiomediastinal silhouette: Stable. Other: No acute osseous or upper abdominal finding. IMPRESSION: No acute cardiopulmonary process. Reviewed, dictated and finalized at location K.
[2022-12-21 19:52] VITALS: BP 144/84; PULSE 78; RESP 17; TEMP 36.7; O2SAT 100
--- NOTE | 2022-12-21 19:52 | ECG_ITS ---
Measurements Intervals [place] Rate: 80 P: 69 ID: [id number] QRS: 53 QRSD: 89 T: 21 QT: 354 QTc: 410 Interpretive Statements SINUS RHYTHM LEFT ATRIAL ENLARGEMENT NONSPECIFIC T-WAVE ABNORMALITY- ANTEROLAT/INF LEADS BORDERLINE ECG COMPARED TO ECG 07/01/2018 02:44:52 T-WAVE ABNORMALITY NOW PRESENT Electronically Signed On 12-22-2022 6:20:02 CDT by Ra Engel D.O.
[2022-12-21 20:11] LABS: Basophils Percent Auto 0.4 % (0.2-1.2); Eosinophils Percent Auto 0.4 % (0-4.4); Hematocrit 38.3 % (37.0-47.0); Hemoglobin 12.2 g/dL (12.0-15.0); Immature Granulocyte Absolute 0.02 K/mm3 (0.00-0.031); Immature Granulocyte Percent A 0.2 % (0-0.5); Lymphocytes Absolute Auto 1.81 K/mm3 (0.9-3.2); Mean Corpuscular HGB Conc 31.9 g/dl (32-36); Mean Corpuscular Hemoglobin 29.4 pg (26-34); Mean Corpuscular Volume 92.3 fl (80-100); Mean Platelet Volume 10.5 fl (7.4-10.4); Monocytes Absolute Auto 0.7 K/mm3 (0.1-0.6); Neutrophils Absolute Auto 5.6 K/mm3 (1.3-6.7); Platelet Count Result 293 k/mm3 (150-375); Red Blood Count 4.15 M/mm3 (4.2-5.4); Red Cell Distribution Width 14.1 % (11.5-14.5); White Blood Count 8.2 K/mm3 (4.5-10.0)
[2022-12-21 20:26] LABS: Alanine Aminotransferase 34 U/L (6-35); Albumin Level 4.6 g/dL (3.5-5.1); Alkaline Phosphatase 59 U/L (38-126); Anion Gap 7 mmol/L (8-16); Aspartate Amino Transferase 32 U/L (14-36); Bilirubin,Total 0.7 mg/dL (0.2-1.3); Blood Urea Nitrogen 11 mg/dL (7-17); Calcium 9.2 mg/dL (8.4-10.2); Carbon Dioxide 26 mmol/L (22-30); Chloride 101 mmol/L (98-107); Estimated CRCL calculation 82 ml/min; Estimated Glomerular Filt Rate > 60; Glucose 105 mg/dL (65-110); Lipase 119 U/L (23-300); Potassium 3.9 mmol/L (3.4-5.0); Sodium 134 mmol/L (137-145)
[2022-12-21 20:27] LABS: INR 1.2; Partial Thromboplastin Time 27.1 SECONDS (22.3-36.8); Prothrombin Time 15.9 Seconds (11.1-14.7)
[2022-12-21 20:38] LABS: Troponin I < 0.012 ng/mL (0.000-0.034)
[2022-12-21 23:02] VITALS: BP 123/84; PULSE 61; RESP 20; O2SAT 100
[2022-12-21 23:59] LABS: Troponin I < 0.012 ng/mL (0.000-0.034)
--- NOTE | 2022-12-22 01:10 | ED.GENADULT ---
HPI - General Adult General Chief complaint: Chest Pain Stated complaint: chest pain Time Seen by Provider: 12/22/22 00:32 History of Present Illness HPI narrative: Patient is a 47-year-old female who presents the emergency department with chief complaint of chest discomfort. Patient reports that she has been having intermittent discomfort for some time patient reports symptoms or not improved by anything patient states that yesterday the symptoms were worse and they have not been as bad today. Patient reports she had a stress test back in 2020 that she is unsure of the actual results but has been told that they were negative. Patient states that she has no prior history of cardiac disease but has been under a lot of stress lately. Related Data Allergies Allergy/AdvReac Type Severity Reaction Status Date / Time Fish Containing Products Allergy Hives Verified 06/01/22 09:33 Review of Systems Review of Systems: A 10 system review of systems was completed on the patient and is negative except for what is stated in the HPI. Nursing and ancillary documentation was reviewed. [facility] Past Medical History Medical History Agoraphobia Anxiety Bleeding hemorrhoid BRBPR (bright red blood per rectum) Depression Enlarged thyroid Essential hypertension JENY (generalized anxiety disorder) Hypertension Panic attack Rectal pressure Suicidal ideation Vaginal delivery x 2 Weight loss Surgical History Surgical History No pertinent past surgical history Family History Family History Mother Hypertension Family history of kidney disease Family history of diabetes mellitus in first degree relative Diabetes mellitus Family history of hypercholesterolemia Cerebrovascular accident Social History Social History Smoking status: Never smoker Second hand tobacco smoke exposure: No Alcohol intake: current Alcohol use details: rarely Substance use: never Substance use type: does not use Living arrangements: with roommate(s) Occupation/Education: occupation Gender identity (if verbalized by the patient): Female Sexual Orientation (if Verbalized by the Patient): Straight or Heterosexual Spiritual care concerns: No Exam Narrative: GENERAL: Well-appearing, well-nourished, and in no acute distress. HEAD: Normocephalic, atraumatic. EYES: PERRLA and EOMI. ENT: Nares clear, no rhinorrhea or epistaxis. Mucous membranes moist. NECK: Supple. CHEST: Clear to auscultation. No respiratory distress. HEART: Regular rate and rhythm. No murmur heard. Normal peripheral pulses. ABDOMEN: Soft, nontender, nondistended, normal active bowel sounds. EXTREMITIES: Normal range of motion. No edema. SKIN: Warm, dry, no rash. NEURO: No focal deficits. Alert and oriented x3. PSYCH: Normal mood and affect. Course Vital Signs Vital signs: Vital Signs Temperature 36.7 C 12/21/22 19:52 Pulse Rate 78 12/21/22 19:52 Respiratory Rate 17 12/21/22 19:52 Blood Pressure 144/84 H 12/21/22 19:52 Pulse Oximetry 100 12/21/22 19:52 Oxygen Delivery Room Air 12/21/22 19:52 Temperature 36.7 C 12/21/22 19:52 Pulse Rate 61 12/21/22 23:02 Respiratory Rate 20 12/21/22 23:02 Blood Pressure 123/84 12/21/22 23:02 Pulse Oximetry 100 12/21/22 23:02 Oxygen Delivery Room Air 12/21/22 19:52 Medical Decision Making MDM Narrative Medical decision making narrative: Differential diagnosis includes ACS, atypical chest pain, dysrhythmia, EKG showed sinus rhythm rate of [address] elevation or ST depression Chest x-ray showed no focal findings Laboratory studies were obtained which showed a 0 and a 3-hour troponin of less than 0.012 electrolytes are oth
== END 2022-12-22 01:27 | disposition home or self-care (01) ==
PROVIDERS: Emergency Medicine; Emergency Provider Emergency Medicine; PCP Family Medicine
DX: R07.89 Other chest pain (principal); I10 Essential (primary) hypertension; E04.9 Nontoxic goiter, unspecified; R94.31 Abnormal electrocardiogram [ECG] [EKG]
CPT/HCPCS: 36415; 71046; 80053; 83690; 84484; 85025; 85610; 85730; 93005; 99284

== ENCOUNTER 2023-03-01 10:25 | Outpatient (CLI) | payer BC, SELFPAY ==
[2023-03-01 10:50] LABS: Appearance Urine Clear (Clear); Bilirubin Urine Negative (Negative); Blood Urine Negative (Negative); Color Urine Yellow (Yellow); Glucose Urine UA Negative (Negative); Ketones Urine Negative (Negative); Leukocyte Esterase Ur Negative LEU/UL (NEGATIVE); Nitrate Urine Negative (Negative); Protein Urine Negative (Negative); Specific Grav Ur 1.005 (1.001-1.035); Urobilinogen Urine 0.2 mg/dL (<2.0); pH Urine 6.5 (5.0-9.0)
[2023-03-01 10:53] LABS: Add Urine Microscopic? NO
[2023-03-01 11:40] LABS: Basophils Percent Auto 0.8 % (0.2-1.2); Eosinophils Absolute Auto 0.1 K/mm3 (0-0.3); Eosinophils Percent Auto 3.1 % (0-4.4); Hematocrit 41.2 % (37.0-47.0); Hemoglobin 12.9 g/dL (12.0-15.0); Immature Granulocyte Absolute 0.01 K/mm3 (0.00-0.031); Immature Granulocyte Percent A 0.3 % (0-0.5); Lymphocytes Absolute Auto 1.47 K/mm3 (0.9-3.2); Lymphocytes Percent Auto 38.2 % (18.3-44.2); Mean Corpuscular HGB Conc 31.3 g/dl (32-36); Mean Corpuscular Hemoglobin 28.9 pg (26-34); Mean Corpuscular Volume 92.2 fl (80-100); Mean Platelet Volume 11.5 fl (7.4-10.4); Monocytes Absolute Auto 0.4 K/mm3 (0.1-0.6); Monocytes Percent Auto 10.1 % (2.6-8.5); Neutrophils Absolute Auto 1.8 K/mm3 (1.3-6.7); Neutrophils Percent Auto 47.5 % (45.5-73.1); Platelet Count Result 353 k/mm3 (150-375); Red Blood Count 4.47 M/mm3 (4.2-5.4); Red Cell Distribution Width 14.5 % (11.5-14.5); White Blood Count 3.9 K/mm3 (4.5-10.0)
[2023-03-01 11:48] LABS: Hemoglobin A1C 5.4 % (<5.7)
[2023-03-01 12:00] LABS: Alanine Aminotransferase 21 U/L (6-35); Albumin Level 4.5 g/dL (3.5-5.1); Alkaline Phosphatase 61 U/L (38-126); Anion Gap 12 mmol/L (8-16); Aspartate Amino Transferase 26 U/L (14-36); Bilirubin,Total 0.5 mg/dL (0.2-1.3); Blood Urea Nitrogen 10 mg/dL (7-17); Calcium 9.3 mg/dL (8.4-10.2); Carbon Dioxide 25 mmol/L (22-30); Chloride 103 mmol/L (98-107); Cholesterol 197 mg/dL (0-200); Estimated Glomerular Filt Rate > 60; Glucose 96 mg/dL (65-110); HDL Direct 43 mg/dL; Potassium 3.5 mmol/L (3.4-5.0); Sodium 140 mmol/L (137-145); Triglycerides 96 mg/dL (<150)
[2023-03-01 12:26] LABS: Thyroid Stimulating Hormone 0.968 uIU/mL (0.465-4.680)
[2023-03-01 19:41] LABS: LDL Cholesterol Direct 100 mg/dL
== END 2023-03-01 10:26 | disposition home or self-care (01) ==
LOC: ANHLAB 10:26
PROVIDERS: PCP Family Medicine; Visit Provider Physician Assistant
DX: I10 Essential (primary) hypertension (principal); F41.1 Generalized anxiety disorder; U07.1 COVID-19
CPT/HCPCS: 36415; 80053; 80061; 81003; 83036; 84443; 85025

== ENCOUNTER 2023-11-18 15:46 | Outpatient (CLI) | payer BC, SELFPAY ==
--- NOTE | ~2023-11-18 | US_ITS ---
US pelvic complete w TV Ordering provider: Kelin Guillen APRN History: . R10.2 - Pelvic and perineal pain . Comparison: None. Technique: Transabdominal and endovaginal ultrasound of the pelvis (Doppler ultrasound interrogation techniques used as needed for this exam.) FINDINGS: CERVIX: Normal. UTERUS: Measures 8.3x 4.3x 5.3 cm in length which is within normal limits and is anteverted. No myom etrial masses. ENDOMETRIUM: Normal in thickness measuring 8 mm. No endometrial masses, cysts or fluid. CUL DE SAC: No free fluid. RIGHT OVARY: Normal in size measuring 1.5x 1x 1.8 Normal echotexture. Doppler vascular flow present. Simple Cyst is seen measuring 1 x 0.9 x 1.3 cm. LEFT OVARY: Not visualized. ADNEXA: Normal. No mass. IMPRESSION: Right simple ovarian cyst. Otherwise, normal pelvic ultrasound. Reviewed, dictated and finalized at location A.
== END 2023-11-18 15:47 | disposition home or self-care (01) ==
LOC: ANHIMG 15:47
PROVIDERS: PCP Family Medicine; Visit Provider Nurse Practitioner Family
DX: R10.2 Pelvic and perineal pain (principal); N83.201 Unspecified ovarian cyst, right side
CPT/HCPCS: 76830; 76856

== ENCOUNTER 2023-12-16 07:42 | Outpatient (CLI) | payer BC, SELFPAY ==
--- NOTE | ~2023-12-16 | MM_ITS ---
EXAMINATION: MM screening carrie BI w yesi HISTORY: Screening TECHNIQUE: Craniocaudal and mediolateral oblique 3-D tomosynthesis images were obtained and synthetic 2-D images were generated. CAD analysis was submitted and interpreted. COMPARISON: Comparison to multiple prior studies sequentially, with oldest reviewed study dated 09/25/2019. BREAST PARENCHYMAL COMPOSITION: Dense: The breasts are heterogeneously dense, which may obscure small masses FINDINGS: There is a developing mass in the upper inner quadrant of the left breast, middle third. Th e right breast is stable without evidence for malignancy. IMPRESSION: 1. Developing left breast mass. 2. Additional mammographic views and possible breast ultrasound are recommended. BI-RADS Category 0: Incomplete: Needs additional imaging evaluation. Reviewed, dictated and finalized at location B. IMPRESSION: 1. Developing left breast mass. 2. Additional mammographic views and possible breast ultrasound are recommended . BI-RADS Category 0: Incomplete: Needs additional imaging evaluation.
== END 2023-12-16 07:43 | disposition home or self-care (01) ==
LOC: ANHIMG 07:48
PROVIDERS: PCP Family Medicine; Visit Provider Obstetrics & Gynecology
DX: Z12.31 Encounter for screening mammogram for malignant neoplasm of breast (principal); N63.22 Unspecified lump in the left breast, upper inner quadrant
CPT/HCPCS: 77063; 77067

== ENCOUNTER 2023-12-23 08:57 | Outpatient (CLI) | payer BC, SELFPAY ==
--- NOTE | ~2023-12-23 | MMUS_ITS ---
EXAMINATION: MM diagnostic carrie LT w yesi, US breast LT limited HISTORY: Left breast mass TECHNIQUE: Additional 3-D tomosynthesis images of the left breast were performed and synthetic 2-D im ages were generated. CAD analysis was submitted and interpreted. High resolution limited left breast ultrasound was performed. COMPARISON: 12/16/2023, 06/17/2022, 04/21/2021, 04/16/2021 BREAST PARENCHYMAL COMPOSITION:Dense: The breasts are heterogeneously dense, which may obscure small masses. FINDINGS: MAMMOGRAPHIC FINDINGS: Spot compression views demonstrate persistent ovoid mass at the 12:00 position measuring 9 mm in diam eter. ULTRASOUND: At the 11:00 and 12:00 position left breast, 4 cm from the nipple, there is a 7 mm ovoid circumscribe d wider than tall anechoic simple cyst. There is posterior through transmission. There is a similar-a ppearing additional simple cyst at the 11:00 position, 4 cm in the nipple, measuring 11 mm in maximum diameter. No solid or otherwise suspicious mass seen in the region scanned. IMPRESSION: No evidence for malignancy. Small simple cysts at the upper left breast, as detailed above. BI-RADS Category 2: Benign finding(s). Reviewed, dictated and finalized at location M. IMPRESSION: No evidence for malignancy. Small simple cysts at the upper left breast, as de tailed above. BI-RADS Category 2: Benign finding(s).
== END 2023-12-23 08:58 | disposition home or self-care (01) ==
LOC: ANHIMG 08:58
PROVIDERS: PCP Family Medicine; Visit Provider Obstetrics & Gynecology
DX: R92.8 Other abnormal and inconclusive findings on diagnostic imaging of breast (principal)
CPT/HCPCS: 76642; 77061; 77065; G0279

== ENCOUNTER 2024-05-02 14:00 | Emergency (ER) | payer BC, SELFPAY ==
--- NOTE | ~2024-05-02 | XR_ITS ---
EXAMINATION: XR chest 2V DATE: 05/02/2024 16:10 INDICATION: Chest pain. TECHNIQUE: Frontal and lateral views of the chest were obtained. COMPARISON: Chest 2 views 12/21/2022 FINDINGS: There is no pneumonia, pleural effusion, or pneumothorax. The heart size is normal. IMPRESSION: 1. No acute cardiopulmonary disease. Reviewed, dictated and finalized at location B. 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
[2024-05-02 14:11] VITALS: BP 153/106; PULSE 85; RESP 16; TEMP 36.6; O2SAT 100
[2024-05-02 15:20] VITALS: BP 152/87; PULSE 67; RESP 16; O2SAT 93
--- NOTE | 2024-05-02 15:28 | ED.RECABL ---
HPI - Recheck/Abnormal Lab/Rx General Chief Complaint: Recheck/Abnormal Lab/Rx Stated Complaint: HYPERTENSION,HEADACHE, CHEST PRESSURE Time Seen by Provider: 05/02/24 15:27 Source: patient Mode of arrival: ambulatory Limitations: no limitations History of Present Illness HPI narrative: Patient is a 49-year-old female who presents the ED with report of high blood pressure and chest pressure. Patient reports she has been dealing with depression and anxiety and increased stress over the last several months since her friend in January. She does have history of previously diagnosis depression and anxiety, but states she had gym doing much better and is not currently on any medication for this. Denies any SI or HI. Just states she has been sad and not living her life to the fullest. She does admit to feeling some seasonal depression as well d/t winter/weather conditions. States today she began having an abnormal sensation/pain in the top of her head. She checked her blood pressure and noted to be elevated into the 160 systolic. Has previously been on hypertensive medications, but lost weight last year and was taken off her medications. She then began having some chest pressure around 11:45 a.m. while at work. States pain radiates into her left arm. She then prompted here for further evaluation. Denies previous history of cardiac issues. Denies shortness of breath. Denies recent cough or cold symptoms. Related Data Allergies Allergy/AdvReac Type Severity Reaction Status Date / Time Fish Containing Products Allergy Hives Verified 12/14/23 15:08 Review of Systems Review of Systems: All systems reviewed & are unremarkable except as noted in HPI. All systems reviewed & are unremarkable except as noted in HPI and below PMFSH Past Medical History Medical History Bleeding hemorrhoid Weight loss BRBPR (bright red blood per rectum) Rectal pressure Depression Anxiety Hypertension Agoraphobia Panic attack Enlarged thyroid Vaginal delivery x 2 Suicidal ideation JENY (generalized anxiety disorder) Essential hypertension Surgical History Surgical History No pertinent past surgical history Family History Family History Mother Hypertension Family history of kidney disease Family history of diabetes mellitus in first degree relative Diabetes mellitus Family history of hypercholesterolemia Cerebrovascular accident Social History Social History Smoking status: Never smoker Second hand tobacco smoke exposure: No Alcohol intake: current Alcohol use details: rarely Substance use: never Substance use type: does not use Lack of Transportation: YES Lack of Food: Never True Current Housing: I Have Housing Concerned About Future Housing: No Difficulty Paying Gas/Electric Bills: No Difficulty Paying for Meds: No Currently Unemployed: No Education: Master's Degree or Higher Living arrangements: with roommate(s) Occupation/Education: occupation Gender identity (if verbalized by the patient): Female Sexual Orientation (if Verbalized by the Patient): Straight or Heterosexual Spiritual care concerns: No Exam Narrative: GENERAL: Well appearing, well-nourished, non-toxic, in no acute distress. HEAD: Normocephalic, atraumatic. RESPIRATORY: Airway patent, respirations nonlabored. Clear to auscultation bilaterally, no rales, rhonchi, wheezing. CARDIOVASCULAR: Regular rate and rhythm without murmurs, rubs, or gallops. MUSCULOSKELETAL: Moves all extremities. No gross deformities. SKIN: Warm, dry, normal color. NEURO: A&O X3. Speech clear. Cranial nerves II-XII grossly intact. Steady gait. No ataxic movements. PSYCHIATRIC: Anxious, tearful. Normal interaction. Course Vital Signs Vital signs: Vital Signs Temperature 98 F 05/02/24 14:11 Pulse Rate 85 05/02/24 14:11 Respiratory Rate 16 05/02/24 14:11 Blood Pressure 153/106 H 05/02/24 14:11 Pulse Oximetry 100 05/02/24 14:11 Temperature 98 F 05/02/24 14:11 Pulse Rate 74 05/02/24 21:02 Respiratory Rate 16 05/02/24 21:02 Blood Pressure 134/86 05/02/24 21:02 Pulse Oximetry 100 05/02/24 21:02 MDM - Recheck/Abnormal Lab/Rx MDM Narrative Medical decision making narrative: Patient presented to ED with depression, anxiety, CP, HTN. Vital signs are stable upon arrival. Blood pressure is 153/106 upon arrival. Will continue to monitor. Patient does appear very anxious. Was agreeable to a small dose of Ativan. EKG is with some nonspecific ST changes. Some T-wave inversion noted in lateral leads. Baseline troponin is undetectable. Will obtain 3 hour. Remainder basic laboratory studies are unremarkable. Normal electrolytes. Stable kidney function. Chest x-ray is clear. Patient is low risk Wells score. Denies any shortness of breath, pleuritic pain. No evidence of DVT on exam. HEART score =3 based on EKG, age, HTN. Discussed having crisis come to evaluate patient and provide resources for depression. Patient was also agreeable to this. Patient is medically cleared from a psychiatric standpoint to be evaluated by our crisis team. Crisis team evaluated patient in the ED and provided patient with resources and outpatient f/u information. 3 Hr troponin obtained and undetectable. Very low suspicion for ACS at this time. BP improved to 111/77 with anxiety management. Feel patient is safe for discharge home at this time close outpatient follow-up. Discussed strict return precautions. Patient agrees with plan. Discharged in stable condition. Medical Records Attestation: I reviewed the patient's medical records. Lab Data Attestation: I reviewed the patient's lab results. 05/02/24 15:35 05/02/24 15:35 Labs: Lab Results 05/02/24 05/02/24 05/02/24 Range/Units 15:35 15:35 15:56 WBC 6.2 (4.5-10.0) K/mm3 RBC 4.45 (4.2-5.4) M/mm3 Hgb 13.5 (12.0-15.0) g/dL Hct 41.1 (37.0-47.0) % MCV 92.4 (80-100) fl MCH 30.3 (26-34) pg MCHC 32.8 (32-36) g/dl RDW 13.2 (11.5-14.5) % Plt Count 295 (150-375) k/mm3 MPV 10.4 (7.4-10.4) fl Immature Gran % (Auto) 0.3 (0-0.5) % Neut % (Auto) 77.6 H (45.5-73.1) % Lymph % (Auto) 17.0 L (18.3-44.2) % [place] % (Auto) 4.3 (2.6-8.5) % Eos % (Auto) 0.5 (0-4.4) % Baso % (Auto) 0.3 (0.2-1.2) % Lymph # (Auto) 1.06 (0.9-3.2) K/mm3 [place] # (Auto) 0.3 (0.1-0.6) K/mm3 Eos # (Auto) 0.0 (0-0.3) K/mm3 Baso # (Auto) 0.0 (0.0-0.1) K/mm3 Abs Immat Gran (auto) 0.02 (0.00-0.031) K/mm3 Absolute Neuts (auto) 4.8 (1.3-6.7) K/mm3 Absolute Nucleated RBC 0.000 (0.0-0.012) K/mm3 Nucleated RBC % 0.0 (0.0-0.2) % PT 15.1 H (11.1-14.7) Seconds INR 1.2 APTT 27.0 (22.3-36.8) Seconds Sodium 137 (137-145) mmol/L Potassium 4.0 (3.4-5.0) mmol/L Chloride 101 (98-107) mmol/L Carbon Dioxide 25 (22-30) mmol/L Anion Gap 11 (4-12) mmol/L BUN 12 (7-17) mg/dL Creatinine 0.74 (0.7-1.0) mg/dL Estim Creat Clear Calc 76 ml/min Estimated GFR > 60 (59 - ) Glucose 99 (65-110) mg/dL Calcium 9.6 (8.4-10.2) mg/dL Magnesium 2.0 Cancelled (1.6-2.3) mg/dL Total Bilirubin 0.6 (0.2-1.3) mg/dL AST 28 (14-36) U/L ALT 27 (6-35) U/L Alkaline Phosphatase 65 (38-126) U/L Troponin I < 0.012 (0.000-0.034) ng/mL Total Protein 8.0 (6.3-8.2) g/dL Albumin 4.5 (3.5-5.1) g/dL TSH 0.859 (0.465-4.680) uIU/mL Urine Color Yellow (Yellow) Urine Appearance Clear (Clear) Urine pH 6.0 (5.0-9.0) Ur Specific [place] 1.005 (1.001-1.035) Urine Protein Negative (Negative) mg/dL Urine Glucose (UA) Negative (Negative) mg/dL Urine Ketones Negative (Negative) mg/dL Ur Blood (Man) Negative (Negative) Urine Nitrate Negative (Negative) Urine Bilirubin Negative (Negative) Urine Urobilinogen 0.2 (<2.0) mg/dL Leukocyte Esterase Rfl Negative (Negative) MARY/UL Salicylates < 1.0 L (2-20) mg/dL Urine Opiates Screen Negative (Negative) Urine Methadone Screen Negative (Negative) Acetaminophen < 10 L (10-30) ug/mL Ur Barbiturates Screen Negative (Negative) Ur Phencyclidine Scrn Negative (Negative) Ur Amphetamine Screen Negative (Negative) U Benzodiazepines Scrn Negative (Negative) Urine Cocaine Screen Negative (Negative) U Cannabinoids Screen Negative (Negative) Ethyl Alcohol < 10 (<10) mg/dL 05/02/24 Range/Units 19:48 WBC (4.5-10.0) K/mm3 RBC (4.2-5.4) M/mm3 Hgb (12.0-15.0) g/dL Hct (37.0-47.0) % MCV (80-100) fl MCH (26-34) pg MCHC (32-36) g/dl RDW (11.5-14.5) % Plt Count (150-375) k/mm3 MPV (7.4-10.4) fl Immature Gran % (Auto) (0-0.5) % Neut % (Auto) (45.5-73.1) % Lymph % (Auto) (18.3-44.2) % [place] % (Auto) (2.6-8.5) % Eos % (Auto) (0-4.4) % Baso % (Auto) (0.2-1.2) % Lymph # (Auto) (0.9-3.2) K/mm3 [place] # (Auto) (0.1-0.6) K/mm3 Eos # (Auto) (0-0.3) K/mm3 Baso # (Auto) (0.0-0.1) K/mm3 Abs Immat Gran (auto) (0.00-0.031) K/mm3 Absolute Neuts (auto) (1.3-6.7) K/mm3 Absolute Nucleated RBC (0.0-0.012) K/mm3 Nucleated RBC % (0.0-0.2) % PT (11.1-14.7) Seconds INR APTT (22.3-36.8) Seconds Sodium (137-145) mmol/L Potassium (3.4-5.0) mmol/L Chloride (98-107) mmol/L Carbon Dioxide (22-30) mmol/L Anion Gap (4-12) mmol/L BUN (7-17) mg/dL Creatinine (0.7-1.0) mg/dL Estim Creat Clear Calc ml/min Estimated GFR (59 - ) Glucose (65-110) mg/dL Calcium (8.4-10.2) mg/dL Magnesium (1.6-2.3) mg/dL Total Bilirubin (0.2-1.3) mg/dL AST (14-36) U/L ALT (6-35) U/L Alkaline Phosphatase (38-126) U/L Troponin I < 0.012 (0.000-0.034) ng/mL Total Protein (6.3-8.2) g/dL Albumin (3.5-5.1) g/dL TSH (0.465-4.680) uIU/mL Urine Color (Yellow) Urine Appearance (Clear) Urine pH (5.0-9.0) Ur Specific [place] (1.001-1.035) Urine Protein (Negative) mg/dL Urine Glucose (UA) (Negative) mg/dL Urine Ketones (Negative) mg/dL Ur Blood (Man) (Negative) Urine Nitrate (Negative) Urine Bilirubin (Negative) Urine Urobilinogen (<2.0) mg/dL Leukocyte Esterase Rfl (Negative) MARY/UL Salicylates (2-20) mg/dL Urine Opiates Screen (Negative) Urine Methadone Screen (Negative) Acetaminophen (10-30) ug/mL Ur Barbiturates Screen (Negative) Ur Phencyclidine Scrn (Negative) Ur Amphetamine Screen (Negative) U Benzodiazepines Scrn (Negative) Urine Cocaine Screen (Negative) U Cannabinoids Screen (Negative) Ethyl Alcohol (<10) mg/dL Imaging Data Attestation: I personally reviewed and interpreted this imaging study as follows: ECG Data EKG #1: Attestation: I personally reviewed and interpreted this ECG as follows: ECG completion date: 05/02/24 ECG completion time: 14:11 EKG Interpretation: normal rate (74), sinus rhythm and non-specific ST changes Discharge Plan Discharge Clinical Impression: Atypical chest pain, Anxiety, Depression Patient Disposition: Home, Self-Care Condition: Stable Instructions: Antibiotic Form, Chest Pain (ED), Depression (ED), Anxiety (ED) Additional Instructions: Utilize resources given to you by crisis team. Follow up with counselor and primary care doctor. Return to the ED at any time if you experience worsening or severe depression or anxiety, thoughts of wanting to harm herself or anyone else, or any other symptoms of concern. Recommend close follow-up with primary care doctor for further evaluation of atypical chest pain. Return to the ED if you experience worsening or severe chest pain, difficulty breathing, unable to keep down food or drink, coughing blood, pain or swelling in legs, or any other symptoms of concern. Patient Language: Afghan Prescriptions: No Action lorazepam [Ativan] 0.5 mg tablet 0.5 mg PO TID PRN (Reason: anxiety) Qty: 30 0RF Follow-up/Referrals: Bhavesh Holcomb MD [Primary Care Provider] - Time of Disposition: 18:39 Quality HEART score for chest pain patients History: slightly suspicious ECG: non specific repolarization disturbance/LBTB/PM Age: > 45 and < 65 years Risk factors: 1 or 2 risk factors Troponin: < or = to 1x normal limit Heart score: 3
[2024-05-02 15:41] LABS: Basophils Percent Auto 0.3 % (0.2-1.2); Eosinophils Percent Auto 0.5 % (0-4.4); Hematocrit 41.1 % (37.0-47.0); Hemoglobin 13.5 g/dL (12.0-15.0); Immature Granulocyte Absolute 0.02 K/mm3 (0.00-0.031); Immature Granulocyte Percent A 0.3 % (0-0.5); Lymphocytes Absolute Auto 1.06 K/mm3 (0.9-3.2); Mean Corpuscular HGB Conc 32.8 g/dl (32-36); Mean Corpuscular Hemoglobin 30.3 pg (26-34); Mean Corpuscular Volume 92.4 fl (80-100); Mean Platelet Volume 10.4 fl (7.4-10.4); Monocytes Absolute Auto 0.3 K/mm3 (0.1-0.6); Monocytes Percent Auto 4.3 % (2.6-8.5); Neutrophils Absolute Auto 4.8 K/mm3 (1.3-6.7); Neutrophils Percent Auto 77.6 % (45.5-73.1); Platelet Count Result 295 k/mm3 (150-375); Red Blood Count 4.45 M/mm3 (4.2-5.4); Red Cell Distribution Width 13.2 % (11.5-14.5); White Blood Count 6.2 K/mm3 (4.5-10.0)
[2024-05-02 15:53] LABS: Alanine Aminotransferase 27 U/L (6-35); Albumin Level 4.5 g/dL (3.5-5.1); Alkaline Phosphatase 65 U/L (38-126); Anion Gap 11 mmol/L (4-12); Aspartate Amino Transferase 28 U/L (14-36); Bilirubin,Total 0.6 mg/dL (0.2-1.3); Blood Urea Nitrogen 12 mg/dL (7-17); Calcium 9.6 mg/dL (8.4-10.2); Carbon Dioxide 25 mmol/L (22-30); Chloride 101 mmol/L (98-107); Estimated CRCL calculation 76 ml/min; Estimated Glomerular Filt Rate > 60; Glucose 99 mg/dL (65-110); Sodium 137 mmol/L (137-145)
[2024-05-02 15:58] LABS: INR 1.2; Prothrombin Time 15.1 Seconds (11.1-14.7)
[2024-05-02] MEDS: LORazepam INJ (*CRX) 2 MG/ML VIAL 0.5 MG IV PUSH (16:02)
[2024-05-02 16:03] LABS: Acetaminophen < 10 ug/mL (10-30); Ethanol < 10 mg/dL (<10); Salicylate < 1.0 mg/dL (2-20)
[2024-05-02 16:05] LABS: Troponin I < 0.012 ng/mL (0.000-0.034)
[2024-05-02 16:07] LABS: Add Urine Microscopic? NO; Appearance Urine Clear (Clear); Bilirubin Urine Negative (Negative); Blood Urine Negative (Negative); Color Urine Yellow (Yellow); Glucose Urine UA Negative (Negative); Ketones Urine Negative (Negative); Leukocyte Esterase Ur Negative LEU/UL (Negative); Nitrate Urine Negative (Negative); Protein Urine Negative (Negative); Specific Grav Ur 1.005 (1.001-1.035); Urobilinogen Urine 0.2 mg/dL (<2.0)
[2024-05-02 16:28] LABS: Amphetamine Screen Urine Negative (Negative); Barbiturate Screen Urine Negative (Negative); Benzodiazepines Screen Urine Negative (Negative); Cannabinoid Screen Urine Negative (Negative); Cocaine Screen Urine Negative (Negative); Methadone Screen Urine Negative (Negative); Opiate Screen Urine Negative (Negative); Phencyclidine Screen Urine Negative (Negative)
[2024-05-02 16:43] LABS: Thyroid Stimulating Hormone 0.859 uIU/mL (0.465-4.680)
[2024-05-02 17:01] VITALS: BP 141/91; PULSE 62; RESP 15; RESP 18; O2SAT 100
[2024-05-02 18:07] VITALS: BP 111/77; PULSE 67; RESP 13; O2SAT 98
[2024-05-02 20:20] LABS: Troponin I < 0.012 ng/mL (0.000-0.034)
[2024-05-02 21:02] VITALS: BP 134/86; PULSE 74; RESP 16; O2SAT 100
--- OUTSIDE RECORDS SUMMARY | 2024-05-04 01:42 | XMS_ITS | Clinical Summary ---
Author Organization [facility] [address] Address [address] [place] [id number] Care Team Providers Care Disability Advocate Name Role Phone Bhavesh Holcomb MD Primary Care Provider Social History Tobacco Use Types Packs/Day Years Used Date Smoking Tobacco: Never Assessed Personal Safety Answer Date Recorded Getting School Help Needed Not on file 06/24 Comments Unknown Sex and Gender Information Value Date Recorded Sex Assigned at Not on file Legal Sex Female 2:44 AM [employer] Gender Identity Not on file Sexual Orientation Not on file Plan of Treatment Not on file Insurance [facility] Care Teams Disability Advocate Relationship Specialty Start Date End Date Bhavesh Holcomb MD [address] [address] PCP - General Family Medicine 03/13/21
--- OUTSIDE RECORDS SUMMARY | 2024-05-04 01:42 | XMS_ITS | Referral Summary ---
Author Organization [facility] Address [address] [facility] [place] [address] Care Team Providers Care Dispatcher Maintenance Name Role Phone Bhavesh Holcomb MD Primary Care Provider [phone] Source Comments [facility],non-owned Affiliates and Associated Physician Practices is amultiple site organization consisting of ambulatory clinics and hospital sitesin [place], [place], [place] and [place]. This disclosure is being madepursuant to the Care Everywhere program and may not contain all information available regarding this patient. Last updated 17.[employer] [place] Allergies No known active allergies Medications * Be aware that medications may not be up to date on this document. Alwaysverify current medications with the patient. Medication Sig Dispensed Refills Start Date End Date Status amLODIPine (NORVASC) 5 MG tabletIndications:Hyp ertension Take 5 mg by mouth once daily Reasons: High Blood Pressure Disorder Active LORazepam (ATIVAN) 0.5 MG tabletIndications:Anx iety Take 0.5 mg by mouth every 8 hours as needed for Anxiety Reasons: Feeling Anxious Active Active Problems Problem Noted Date Diagnosed Date Severe episode of recurrent major depressive disorder, without psychotic features 11/22/2018 Social History Tobacco Use Types Packs/Day Years Used Date Smoking Tobacco: Never Smokeless Tobacco: Never Alcohol Use Standard Drinks/Week Comments Not Currently 0 (1 standard drink = 0.6 oz pure alcohol) occasionally a glass of wine with a friend Sex and Gender Information Value Date Recorded Sex Assigned at Not on file Gender Identity Not on file Sexual Orientation Not on file Last Filed Vital Signs Vital Sign Reading Time Taken Comments Blood Pressure 123/76 11/24/2018 8:30 AM CDT Pulse 60 11/24/2018 8:30 AM CDT Temperature 36.8 ??C (98.3 ??F) 11/24/2018 7:36 AM CD T Respiratory Rate 14 11/24/2018 8:30 AM CDT Oxygen Saturation 100% 11/24/2018 7:36 AM CDT Inhaled Oxygen Concentration - - Weight 88.9 kg (196 lb) 11/22/2018 10:30 PM CDT Height 171 cm (5' 7.32 ) 11/22/2018 10:30 PM CDT Body Mass Index 30.4 11/22/2018 10:30 PM CDT Functional Status Functional Status Response Date of Assess ment Is person deaf or have serious hearing difficult y? No 11/24/2018 Is person blind or have serious difficulty seein g? No 11/24/2018 Does person have serious dif ficulty walking/climbing stairs? No 11/24/2018 Does person have difficulty dressing/bathing? No 11/24/2018 Does person have difficulty doing errands alone? No 11/24/2018 Cognitive Status Response Date of Assessm ent Does person have difficulty concentrating/remembering/making decisions? No 11/24/2018 Plan of Treatment Not on file Advance Directives * Full Code (Latest Code Status on File) Date Activated Date Inactivated Comments 11/22/2018 10:48 PM 11/24/2018 2:16 PM Care Teams Dispatcher Maintenance Relationship Specialty Start Date End Date Bhavesh Holcomb MD [address] [place] [address] PCP - General Family Medicine 11/23/07
--- OUTSIDE RECORDS SUMMARY | 2024-05-04 01:42 | XMS_ITS | Referral Summary ---
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
--- OUTSIDE RECORDS SUMMARY | 2024-05-04 01:42 | XMS_ITS | CONTINUITY OF CARE DOCUMENT ---
Author Name mallika tena Address Unknown Organization [facility] Office Address [address] [place] [address] Phone [phone] Care Team Providers Care Production Clerk Name Role Phone Reza Pruitt DO Leonel Unavailable [phone] GISSELLE HAWKINS MD Unavailable [phone] GISSELLE HAWKINS MD Unavailable [phone] INSURANCE PROVIDERS Payer name Policy type / Coverage type Aaron red democrat ID [facility] [id number]
--- OUTSIDE RECORDS SUMMARY | 2024-05-04 01:42 | XMS_ITS | Clinical Summary ---
Author Organization [facility] Address [address] [place] [address] Care Team Providers Care Electrician Underground Name Role Phone Bhavesh Holcomb MD Primary Care Provider [phone] Source Comments [facility],non-owned Affiliates and Associated Physician Practices is amultiple site organization consisting of ambulatory clinics and hospital sitesin [place], [place], [place] and [place]. This disclosure is being madepursuant to the Care Everywhere program and may not contain all information available regarding this patient. Last updated 17.[facility] Allergies No known active allergies Medications * [...] Mass Index 30.4 11/22/2018 10:30 PM CDT Plan of Treatment Health Maintenance Due Date Last Done Comments COLOGUARD (AGES 45-75) - COL ON CA SCREENING 1973 COLON MONITORING 1973 COLONOSCOPY - COLON CA SCREENING 1973 CT COLONOGRAPHY - COLON CA SCREENING 1973 Colorectal Cancer Screening 1973 FIT - COLON CA SCREENING 1973 FLEX SIG - COLON CA SCREENING 1973 LIPID TESTING 1973 MAMMOGRAM 1973 PAP SMEAR 1973 HIV SCREENING 1988 HEPATITIS C SCREENING 04/16/1991 DTAP/TDAP/TD VACCINES (1 - Tdap) 1992 HEPATITIS B VACCINE (1 of 3 - 19+ 3-dose series) 1992 PNEUMOCOCCAL VACCINE 50+ (1 of 1 - PCV) 2023 ZOSTER VACCINE (1 of 2) 2023 COVID-19 VACCINE (1 - 2023-2 5 season) 2023 INFLUENZA VACCINE (#1) 2023 DEPRESSION SCREENING 04/11/2024 HIB VACCINE Aged Out No longer eligi ble based on patient's age to complete this topic HPV VACCINE Aged Out No longer eligi ble based on patient's age to complete this topic MENINGOCOCCAL (Group B) VACCINE Aged Out No longer eligible based on patient's age to complete this topic MENINGOCOCCAL VACCINE Aged Out No ramirez smitha eligible based on patient's age to complete this topic PNEUMOCOCCAL VACCINE Aged Out No long er eligible based on patient's age to complete this topic Advance Directives * Full Code (Latest Code Status on File) Date Activated Date Inactivated Comments 11/22/2018 10:48 PM 11/24/2018 2:16 PM Care Teams Electrician Underground Relationship Specialty Start Date End Date Bhavesh Holcomb MD [address] [place] [address] PCP - General Family Medicine 11/23/07
--- OUTSIDE RECORDS SUMMARY | 2024-05-04 01:42 | XMS_ITS | Patient Health Summary ---
Author Organization [facility] Address [address] [facility] [place] [address] Care Team Providers Care Fruit Thinner Name Role Phone Bhavesh Holcomb MD Primary Care Provider [phone] Note from [facility],non-owned Affiliates and Associated Physician Practices is amultiple site organization consisting of ambulatory clinics and hospital sitesin [place], [place], [place] and [place]. This disclosure is being madepursuant to the Care Everywhere program and may not contain all information available regarding this patient. Last updated 17.[facility] Allergies No known active allergies Medications * Be aware that medications may not be up to date on this document. Alwaysverify current medications with the patient. * amLODIPine (NORVASC) 5 MG tablet Take 5 mg by mouth once daily Reasons: High Blood Pressure Disorder * LORazepam (ATIVAN) 0.5 MG tablet Take 0.5 mg by mouth every 8 hours as needed for Anxiety Reasons: Feeling Anxious Active Problems Problem Noted Date Diagnosed Date [...] Mass Index 30.4 11/22/2018 10:30 PM CDT Care Teams Fruit Thinner Relationship Specialty Start Date End Date Bhavesh Holcomb MD [address] [facility] [address] [place] [address] PCP - General Family Medicine 11/23/07
--- OUTSIDE RECORDS SUMMARY | 2024-05-04 03:19 | XMS_ITS | Referral Summary ---
Author Organization [facility] Address [address] [place] [address] Care Team Providers Care Staff Mechanical Engineer Name Role Phone Bhavesh Holcomb MD Primary Care Provider [phone] Source Comments [facility],non-owned Affiliates and Associated Physician Practices is amultiple site organization consisting of ambulatory clinics and hospital sitesin [place], [place] and [place]. This disclosure is being madepursuant to the Care Everywhere program and may not contain all information available regarding this patient. Last updated 17.[facility] Allergies No known active allergies Medications * [...] 10:48 PM 11/24/2018 2:16 PM Care Teams Staff Mechanical Engineer Relationship Specialty Start Date End Date Bhavesh Holcomb MD [address] [place] [address] PCP - General Family Medicine 11/23/07
--- OUTSIDE RECORDS SUMMARY | 2024-05-04 03:19 | XMS_ITS | CONTINUITY OF CARE DOCUMENT ---
Author Name mallika tena Address Unknown Organization [facility] Office Address [address] [place] [address] Phone [phone] Care Team Providers Care Pvc Loader Name Role Phone Reza Pruitt DO Leonel Unavailable GISSELLE HAWKINS MD Unavailable [phone] GISSELLE HAWKINS MD Unavailable [phone] INSURANCE PROVIDERS Payer name Policy type / Coverage type Aaron red democrat ID [facility] [id number]
--- OUTSIDE RECORDS SUMMARY | 2024-05-04 03:19 | XMS_ITS | Referral Summary ---
Author Organization 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
--- OUTSIDE RECORDS SUMMARY | 2024-05-04 03:19 | XMS_ITS | Clinical Summary ---
Author Organization [facility] Address [address] [place] [address] Care Team Providers Care Hotel Or Motel Receptionist Name Role Phone Bhavesh Holcomb MD Primary Care Provider [phone] Source Comments [facility],non-owned Affiliates and Associated Physician Practices is amultiple site organization consisting of ambulatory clinics and hospital sitesin [place], [place] and [place]. This disclosure is being madepursuant to the Care Everywhere program and may not contain all information available regarding this patient. Last updated 17.[facility] Allergies No known active allergies Medications * [...] 10:48 PM 11/24/2018 2:16 PM Care Teams Hotel Or Motel Receptionist Relationship Specialty Start Date End Date Bhavesh Holcomb MD [address] [place] [address] PCP - General Family Medicine 11/23/07
--- OUTSIDE RECORDS SUMMARY | 2024-05-04 03:19 | XMS_ITS | Clinical Summary ---
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
--- OUTSIDE RECORDS SUMMARY | 2024-05-04 03:19 | XMS_ITS | Patient Health Summary ---
Author Organization [facility] Address [address] [facility] [place] [address] Care Team Providers Care Medical Science Liaison Name Role Phone Bhavesh Holcomb MD Primary Care Provider [phone] [facility],non-owned Affiliates and Associated Physician Practices is amultiple site organization consisting of ambulatory clinics and hospital sitesin [place], [place], [place] and [place]. This disclosure is being madepursuant to the Care Everywhere program and may not contain all information available regarding this patient. Last updated 17.[facility] Allergies No known active allergies Medications * [...] 30.4 11/22/2018 10:30 PM CDT Care Teams Medical Science Liaison Relationship Specialty Start Date End Date Bhavesh Holcomb MD [address] [facility] [address] [place] [address] PCP - General Family Medicine 11/23/07
== END 2024-05-02 21:03 | disposition home or self-care (01) ==
PROVIDERS: Emergency Provider Physician Assistant; PCP Family Medicine
DX: R07.89 Other chest pain (principal); F41.9 Anxiety disorder, unspecified; F32.A Depression, unspecified; I10 Essential (primary) hypertension; R94.31 Abnormal electrocardiogram [ECG] [EKG]
CPT/HCPCS: 36415; 71046; 80053; 80143; 80179; 80307; 81003; 82077; 83735; 84443; 84484; 85025; 85610; 85730; 93005; 96374; 99284; J2060